=== PATIENT | female | born 1985 | race Native Hawaiian/Other Pacific Islander ===

== ENCOUNTER 2022-05-11 06:53 | Outpatient (CLI) | payer SELFPAY ==
[2022-05-11 06:58] VITALS: BP 115/70; PULSE 63; RESP 18; TEMP 36; O2SAT 100; BMI 32.1
--- NOTE | 2022-05-11 07:45 | ED_ITS ---
HPI - Female Genitourinary General Time Seen by Provider: 07:25 Date Seen: 05/11/22 Chief complaint: Unspecified Complaint, Adult Stated complaint: dicharge in Time Seen by Provider: 05/11/22 07:24 Source: patient and RN notes reviewed Mode of arrival: ambulatory Limitations: no limitations History of Present Illness HPI Narrative: Patient is 21 6/7 weeks , second . This morning woke up and went to the bathroom. When she was wiping after urination, a small object was noted on the toilet paper. Patient brings this in as she is worried. She has not had any cramping or pain or other unusual complaints. She has not had a fever. Nursing staff felt it may be a small piece of toilet paper. Patient notes nothing like this has happened before but does state that 20 years ago she was treated for a vaginal infection. No pain with urination. Related Data Home Medications Medication Instructions Recorded Confirmed aspirin 81 mg tablet,delayed 81 mg PO DAILY 05/11/22 05/11/22 release (Adult Aspirin Regimen) prenat.vits,laney,[id number] 05/11/22 Allergies Allergy/AdvReac Type Severity Reaction Status Date / Time No Known Drug Allergies Allergy Verified 05/11/22 07:16 [facility] Social History Smoking Status: Never smoker Do you use any of these nicotine containing products: None Second hand tobacco smoke exposure: No How often do you have a drink containing alcohol: never How often do you have six or more drinks on one occasion: Never AUDIT-C Alcohol total score: 0 Non-prescribed substance use: denies use service: No Exam Narrative: Exam Narrative: Patient is calm, non-toxic in appearance. Examiniation of the vaginal product - appearance of a watermelon seed with a 2.5 cm thin tail. Const: Vital Signs, click to edit/add: Vital Signs - 24 hr 05/11/22 06:58 Temperature 96.8 F L Pulse Rate [Pulse Oximeter] 63 Respiratory Rate 18 Blood Pressure [Ri ght Upper Arm] 115/70 Pulse Oximetry 100 Documenting provider has reviewed patient's vital signs: yes Course Course Hospital Course: I shared the small seed like product with the ob nurses and we put this in a speciment cup. Given patient is greater than 20 weeks, patient is accompanied to OB for pelvic exam and further evaluation. Vital Signs Vital signs: Initial Vital Signs Temperature 96.8 F L 05/11/22 06:58 Temperature Source Temporal Artery Scan 05/11/22 06:58 Pulse Rate 63 05/11/22 06:58 Pulse Rhythm 05/11/22 06:58 Respiratory Rate 18 05/11/22 06:58 Blood Pressure 115/70 05/11/22 06:58 Blood Pressure Mean 85 05/11/22 06:58 Pulse Oximetry 100 05/11/22 06:58 Oxygen Delivery Method 05/11/22 06:58 Vital Signs Temperature 96.8 F L 05/11/22 06:58 Pulse Rate 63 05/11/22 06:58 Respiratory Rate 18 05/11/22 06:58 Blood Pressure 115/70 05/11/22 06:58 Pulse Oximetry 100 05/11/22 06:58 Temperature 96.8 F L 05/11/22 06:58 Pulse Rate 63 05/11/22 06:58 Respiratory Rate 18 05/11/22 06:58 Blood Pressure 115/70 05/11/22 06:58 Pulse Oximetry 100 05/11/22 06:58 Discharge Plan Discharge Clinical Impression: Vaginal discharge Patient Disposition: Xfer Other Condition: Stable Prescriptions: No Action aspirin [Adult Aspirin Regimen] 81 mg tablet,delayed release (DR/EC) 81 mg PO DAILY 0RF prenat.vits,laney,[id number] 0RF Stand Alone Forms: My[employer] Info Instructions
--- NOTE | 2022-05-11 07:52 | ED.NURSE ---
is in ob now for a pelvic exam. dr diallo examined and did consult with ob staff they will do an exam.
--- NOTE | 2022-05-11 08:39 | ED.NURSE ---
was seen per dr diallo and was sent to ob via w/c.
--- NOTE | 2022-05-11 09:26 | PM.OBLDTN ---
OB - Triage/Final Diagnosis Visit Information Time Seen by Provider: 09:00 Date Seen: 05/11/22 Date of evaluation: 05/11/22 Reason for evaluation: other Comments/Additional reasons for admission: Vaginal discharge Evaluation Cervical dilation (cm): 0 Cervical effacement (%): 0 Laboratory results: Laboratory Tests 05/11/22 05/11/22 Range/Units 09:08 09:08 Vaginal Trichomonas Pending Vaginal Yeast Pending Vaginal Clue Cells Pending C.trachomatis Ampl DNA Pending N.gonorrhoeae Ampl DNA Pending Vital signs: Vital Signs - 24 hr 05/11/22 06:58 Temperature 96.8 F L Pulse Rate [Pulse Oximeter] 63 Respiratory Rate 18 Blood Pressure [Right Upper Arm] 115/70 Pulse Oximetry 100 Final Diagnosis (1) Candidiasis of vagina during : Status: Acute
[2022-05-11 09:33] LABS: Clue Cells No Clue Cells Seen (None Seen); Trichomonas No Trichomonas Seen (None Seen); Yeast Yeast Seen (None Seen)
--- NOTE | 2022-05-11 09:54 | W.PM.OBO ---
OB Outpatient HPI History of Present Illness Time Seen by Provider: 09:00 Date Seen: 05/11/22 History of Present Illness: 36 year old at 22w0d gestation who presented with vaginal discharge. She states this morning she got up to void and noted a piece of tissue came out of her vagina after she went to clean herself with toilet paper. She otherwise feels well. Denies bleeding, cramping, pelvic pain. She does report she has history of fibroid. Her first baby is 13 years of age. She has felt this baby move normally. She had a yeast and bacterial vaginosis recently and had green discharge with that infection. She states this has resolved with oral flagyl and vaginal monistat. She has ongoing white discharge but believes this is normal in . She denies significant vaginal irritation. she had intercourse on . She has not douched or had any other items in her vagina. She denies any new sexual partners. Nursing called me in to evaluate as they felt the tissue that came out of patient appeared to be a germinated seed-- white and firm in appearance. Baby moving naturally: Yes Bleeding: No Contractions: No Leaking fluid: No Discharge: Yes Heartburn: No Back pain: No Meds Home Medications and Allergies Home Medications Medication Instructions Recorded Confirmed Type aspirin 81 mg tablet,delayed 81 mg PO DAILY 05/11/22 05/11/22 History release (Adult Aspirin Regimen) prenat.vits,laney,[id number] 05/11/22 History Allergies Allergy/AdvReac Type Severity Reaction Status Date / Time No Known Drug Allergies Allergy Verified 05/11/22 07:16 ON LICENSE OF [facility] Social History Smoking Status: Never smoker Do you use any of these nicotine containing products: None Second hand tobacco smoke exposure: No How often do you have a drink containing alcohol: never How often do you have six or more drinks on one occasion: Never AUDIT-C Alcohol total score: 0 Non-prescribed substance use: denies use service: No Reproductive Health History : 2 Para: 1 History of multiple gestations: No History of pregnancies: No History of ectopic pregnancies: No OB - H&P: Exam Physical Exam Vital signs: Temp Pulse Resp BP Pulse Ox 96.8 F L 63 18 115/70 100 05/11/22 06:58 05/11/22 06:58 05/11/22 06:58 05/11/22 06:58 05/11/22 06:58 Constitutional Constitutional: no acute distress Routine HEENT Exam Head: Present atraumatic, normal inspection and normocephalic Eye: Present normal appearance Comments: Masked Routine Respiratory Exam Respiratory: Present CTA bilaterally Routine Cardiovascular Exam Cardiovascular: RRR, S1 and S2 Detailed Abdominal Exam Comments: Gravid, non tender Routine Exam External: Present normal external exam and discharge (Patient has copious amounts of white chunky discharge. Erythema of the vaginal wade. ) Comments: Cervix appears closed to visual inspection. Detailed Labor and Delivery Exam Patient Gravid: yes Dilation (cm): 0 Routine Extremities Exam Extremities: Present full ROM and normal inspection Routine Psychiatric Exam Present normal affect Labs Labs Laboratory Tests 05/11/22 05/11/22 Range/Units 09:08 09:08 Vaginal Trichomonas No Trichomonas Seen (None Seen) Vaginal Yeast Yeast Seen (None Seen) Vaginal Clue Cells No Clue Cells Seen (None Seen) C.trachomatis Ampl DNA Pending N.gonorrhoeae Ampl DNA Pending Assessment and Plan Assessment and plan (1) Candidiasis of vagina during : Status: Acute Plan Patient's discharge likely due to yeast infection. Will treat with Monistat. (Sent to [facility] pharmacy). Follow up if not improving. FHT in 140s, baby moving, no concerns for labor. Gonorrhae/chlamydia swab pending Time Spent with Patient Time: 25 min
[2022-05-11 10:47] LABS: Chlamydia DNA Amplified* NOT DETECTED (No Detected); GC DNA Amplified* NOT DETECTED (No Detected)
== END 2022-05-11 10:00 | disposition home or self-care (01) ==
LOC: ED 08:27 → OB 08:33 → ED 08:43 → OB 08:43
PROVIDERS: Emergency Provider Family Medicine; PCP Family Medicine; Visit Provider Family Medicine
DX: O98.812 Other maternal infectious and parasitic diseases complicating pregnancy, second trimester (principal); B37.3 Candidiasis of vulva and vagina; Z3A.22 22 weeks gestation of pregnancy
CPT/HCPCS: 87210; 87491; 99281